=== PATIENT | female | born 1980 | race Native Hawaiian/Other Pacific Islander ===

== ENCOUNTER 2020-06-18 11:04 | Outpatient (CLI) | payer OTHER ==
[2020-06-18 11:31] LABS: POTASSIUM 3.9 mmol/L (3.6-5.2)
[2020-06-18 11:36] LABS: PLATELET COUNT 268 K/uL (152-353)
== END 2020-06-18 19:19 | disposition home or self-care (01) ==
LOC: LABW 11:04
PROVIDERS: Nurse Practitioner Family
DX: R10.31 Right lower quadrant pain (principal)
CPT/HCPCS: 36415; 80053; 83690; 85027

== ENCOUNTER 2021-01-28 10:21 | Outpatient (CLI) | payer OTHER | END 2021-01-28 19:31 | disposition home or self-care (01) | LOC: RAD 10:21 | PROVIDERS: ATTEND Nurse Practitioner Family | DX: R05 Cough (principal) ==

== ENCOUNTER 2021-02-28 16:48 | Outpatient (CLI) | payer OTHER ==
[2021-02-28 17:15] LABS: POTASSIUM 3.7 mmol/L (3.6-5.2)
== END 2021-02-28 22:00 | disposition home or self-care (01) ==
LOC: LABW 16:48
PROVIDERS: ATTEND Nurse Practitioner Primary Care
DX: R60.0 Localized edema (principal)
CPT/HCPCS: 36415; 80053; 83880; 85379

== ENCOUNTER 2021-08-28 13:41 | Outpatient (CLI) | payer OTHER | END 2021-08-28 20:25 | disposition home or self-care (01) | LOC: MRI 13:41 | PROVIDERS: ATTEND Family Medicine | DX: M25.511 Pain in right shoulder (principal) ==

== ENCOUNTER 2022-04-10 09:28 | Outpatient (CLI) | payer OTHER | END 2022-04-10 18:59 | disposition home or self-care (01) | LOC: US 09:28 | PROVIDERS: ATTEND Family Medicine | DX: R10.13 Epigastric pain (principal); Z79.890 Hormone replacement therapy; Z12.31 Encounter for screening mammogram for malignant neoplasm of breast ==

== ENCOUNTER 2022-09-17 12:59 | Outpatient (CLI) | payer OTHER | END 2022-09-17 19:04 | disposition home or self-care (01) | LOC: MAMMO 12:59 | PROVIDERS: ATTEND Family Medicine | DX: N64.52 Nipple discharge (principal) | CPT/HCPCS: G0279 ==

== ENCOUNTER 2023-05-21 08:50 | Outpatient (CLI) | payer OTHER | END 2023-05-21 19:07 | disposition home or self-care (01) | LOC: MAMMO 08:50 | PROVIDERS: ATTEND Family Medicine | DX: Z12.31 Encounter for screening mammogram for malignant neoplasm of breast (principal) ==